=== PATIENT | male | born 1955 | race Caucasian/White ===

== ENCOUNTER 2016-06-23 23:59 | Inpatient (IN) | payer BC ==
--- NOTE | ~2016-06-23 | CR63 ---
[facility] A Service [facility] RADIOLOGY TEXT RESULTS PATIENT: HERVE SANTOS LOCATION: [facility] : 55 UNIT #: [id number] AGE: [address]: Devon Paige MD SEX: M ORDER DR: [id number] [place] [id number] [facility]. [place], [place] [address] [id number] I MR#: [id number] Acc #: [id number] NAME: HERVE SANTOS : 1955 SEX: M STUDY DATE/TIME: 06/26/2016 14:50 [facility] ROOM: [facility] STUDY DESCRIPTION: CR Chest 2 View Attending Physician: Devon Paige M.D. Ordering Physician: Devon Paige M.D. Primary Care Physician: No Primary Care Physician MEDICAL IMAGING REPORT This report is preliminary unless electronic signature is present EXAM 2 views chest. DATE OF EXAM 06/26/2016 HISTORY COPD. REPORT PA and lateral radiographs of the chest are presented. COMPARISON 06/24/2016 FINDINGS Bony structures are unremarkable. Stable mild cardiac enlargement. The lungs hyperinflated consistent with underlying COPD. Increased interstitial and airspace densities bilateral [id number] lung zones remaining more pronounced on the right than left. There is no compelling evidence of underlying vascular congestion. I favor that this reflects worsening bilateral pneumonia in the bilateral lower lobes. No definite pleural effusion. No pneumothorax or suspicious nodule. Continued surveillance to clearance recommended. Dictated by... Brodie Winters M.D. THIS IS AN ELECTRONICALLY VERIFIED REPORT Brodie Witners M.D. at 06/27/2016 5:36 PM HANSA/zackary [facility] A [facility] RADIOLOGY TEXT RESULTS PATIENT: HERVE SANTOS LOCATION: [facility] : 55 UNIT #: [id number] AGE: [address]: Devon Paige MD SEX: M ORDER DR: TD: 06/26/2016 19:18 JOB #: [id number] MEDICAL IMAGING REPORT Page 1 of 1 COPY
--- NOTE | ~2016-06-23 | EKG ---
PATIENT: HERVE SANTOS UNIT #: [id number] Ventricular Rate: 86 BPM Atrial Rate: 86 BPM P-R Interval: 130 ms QRS Duration: 160 ms Q-T Interval: 460 ms QTC Calculation(Bezet): 550 ms P [place]: 3 degrees Calculated R [place]: 46 degrees Calculated T [place]: 31 degrees Diagnosis Line: Normal sinus rhythm Diagnosis Line: Right bundle branch block Diagnosis Line: Abnormal ECG Diagnosis Line: No previous ECGs available Diagnosis Line: Confirmed by ALVINO MCGOWAN MD ([id number]) on 06/25/2016 Diagnosis Line: 11:04:20 PM INTERPRETING MD: ROSLYN ELDER
--- NOTE | ~2016-06-23 | CR72 ---
[facility] A Service [facility] RADIOLOGY TEXT RESULTS PATIENT: HERVE SANTOS LOCATION: [facility] : 55 UNIT #: [id number] AGE: [address]: Devon Paige MD SEX: M ORDER DR: [id number] [facility] [address] [place], [place] [address] [id number] I MR#: [id number] Acc #: [id number] NAME: HERVE SANTOS. : 1955 SEX: M STUDY DATE/TIME: 06/24/2016 0:53 UNIT: [facility] ROOM: 15182 STUDY DESCRIPTION: CR Chest Single View Portable Attending Physician: Devon Paige M.D. Ordering Physician: Eliceo Rene M.D. Primary Care Physician: Primary Care Physician No MEDICAL IMAGING REPORT This report is preliminary unless electronic signature is present EXAM Portable chest INDICATIONS Shortness of air and cough for the past 2-3 days. PROCEDURE Frontal view chest. COMPARISON 04/19/2011 FINDINGS Moderate cardiomegaly. Ill-defined bibasilar opacity, right greater than left. Background emphysema. No pneumothorax. IMPRESSION 1. Cardiomegaly. 2. Emphysema. 3. Bibasilar opacity, right greater than left suspicious for infiltrate. Dictated by... Jim Walden M.D. THIS IS AN ELECTRONICALLY VERIFIED REPORT Jim Walden M.D. at 06/24/2016 9:56 PM EED/cmm TD: 06/24/2016 07:50 JOB #: [id number] MEDICAL IMAGING REPORT [facility] A [facility] RADIOLOGY TEXT RESULTS PATIENT: HERVE SANTOS LOCATION: [facility] : 55 UNIT #: [id number] AGE: [address]: Devon Paige MD SEX: M ORDER DR: Page 1 of 1 COPY
--- NOTE | ~2016-06-23 | HP ---
Unit #: [id number] #: [id number] Patient: HERVE SANTOS [id number] [address] [address] [id number] I MR#: [id number] NAME: HERVE SANTOS. ROOM: 81824 Age: 60 Sex: M Admission Date: 06/24/2016 : 1955 Attending Physician: Sonia Cruz M.D. Primary Care Physician: No Primary Care Physician HISTORY AND PHYSICAL CHIEF COMPLAINT Community-acquired pneumonia with acute hypoxic respiratory failure and COPD exacerbation. HISTORY This pleasant 60-year-old male with COPD, hypertension, CAD, is admitted for pneumonia. The patient states that he became ill about two months ago with a URI. More recently, has been experiencing an increasing cough which is mainly nonproductive, associated with bronchospasm and last night increasing shortness of breath. The patient had seen his primary care physician several days ago who prescribed a steroid Dosepak. Despite using steroids and nebulizer, symptoms worsened. Also developed chills yesterday. Presented to this emergency department late last evening with a temperature of 99.8 and O2 saturation of 82% on room air. Chest x-ray and CT scan showed pneumonia. In the ER, the patient was treated with 125 mg of Solu-Medrol, aspirin, bolused with saline, given Rocephin, Zithromax and a small dose of Mitchell[place]. PAST MEDICAL HISTORY 1. COPD. 2. Hyperlipidemia. 3. Hypertension. 4. CAD, status post PCI and stent. 5. Recent sciatica, being evaluated by primary care physician. 6. Right knee surgery. ALLERGIES None. HOME MEDICATIONS 1. Singulair. 2. Lipitor 80 mg daily. 3. Zyrtec 5 mg daily. 4. Ultram 50 mg b.i.d. 5. Hydrocodone cough syrup. 6. Bystolic 5 mg daily. 7. Symbicort 80/4.5, two puffs b.i.d. 8. Albuterol nebulizer. FAMILY HISTORY Negative for heart or lung disease. Unit #: [id number] #: [id number] Patient: HERVE SANTOS SOCIAL HISTORY The patient lives with his . Drinks occasional alcohol. Smokes one half pack per day of tobacco. REVIEW OF SYSTEMS Notable for cough, shortness of breath, chills, COPD, tobacco use, hyperlipidemia, hypertension, CAD, right knee surgery and sciatica. All other systems were reviewed and are otherwise negative. PHYSICAL EXAMINATION GENERAL APPEARANCE: Pleasant 60-year-old male, currently in no acute distress. VITAL SIGNS: Temperature 99.8, pulse 97, respirations 18, blood pressure 150/53. O2 saturation is 82% on room air. HEENT: Eyes PERRLA. Extraocular muscles are intact. Pharynx is benign, status post tonsillectomy. NECK: Supple without adenopathy or thyromegaly. CHEST: Reveals expiratory wheezes and crackles at the bases bilaterally. CARDIAC: Normal S1 and S2 without murmur. ABDOMEN: Bowel sounds are present. No hepatosplenomegaly, tenderness or masses. EXTREMITIES: Without clubbing, cyanosis or edema. Pedal pulses are present. NEUROLOGIC EXAM: The patient is awake, alert, oriented. Cranial nerves are intact. Equal strength throughout. DIAGNOSTIC STUDIES LABORATORY: Hematocrit 42.6, white blood count 11.3, normal platelet count. Cardiac markers are negative. Coags are normal. Elevated D-dimer. SMA-12 - potassium 3.3, alkaline phos. 94. ABG - pH 7.45, pCO2 32, pO2 55, O2 saturation is 90.5% on 5 L of oxygen. CARDIOVASCULAR: EKG shows a normal sinus rhythm, rate of 86 with an old right bundle branch block. IMAGING: Chest x-ray - cardiomegaly, COPD with right greater than left opacities at the bases. CTA of the chest show a right middle lobe and bibasilar infiltrates, prominent bilateral hilar nodes. Repeat study following treatment of pneumonia is recommended. ASSESSMENT 1. Community-acquired pneumonia with acute hypoxic respiratory failure and COPD exacerbation. 2. Hypertension. 3. Hyperlipidemia. 4. Tobacco use. 5. Hypokalemia. 6. Sciatica, on Ultram, being evaluated by primary care physician. 7. CAD, status post PCI and stent. Unit #: [id number] #: [id number] Patient: HERVE SANTOS PLANS 1. Continue Rocephin and Zithromax pending cultures. 2. Steroids, Duo-Nebs, Symbicort and mucolytics. 3. DVT prophylaxis. 4. Replace potassium. 5. Smoking cessation counseling. 6. Patient will need repeat imaging studies after treatment of his pneumonia. Dictated by Sonia Cruz M.D. AML/df TD: 06/24/2016 05:46 JOB #: [id number] CC: Talisha Lion M.D. HISTORY AND PHYSICAL Page 1 of 1 X Sonia Cruz MD X HISTORY AND PHYSICAL
--- NOTE | ~2016-06-23 | DS ---
Unit #: [id number] #: [id number] Patient: HERVE SANTOS [id number] [address] [address] [id number] I MR#: [id number] NAME: EHRVE SANTOS. ROOM: 311 Age: 60 Sex: M Admission Date: 06/24/2016 : 1955 Discharge Date: 06/28/2016 Attending Physician: Devon Paige M.D. DISCHARGE SUMMARY PRIMARY CARE PHYSICIAN Dr. Suazo DISCHARGE DIAGNOSES 1. Streptococcal pneumonia. 2. Acute hypoxic respiratory failure. 3. Acute chronic obstructive pulmonary disease exacerbation. 4. Essential hypertension. 5. Dyslipidemia. 6. Tobacco usage. 7. Chronic sciatic pain. 8. History of coronary artery disease. 9. Resolved hypokalemia. CONSULTANTS None. PROCEDURES None. DIAGNOSTIC STUDIES LABORATORY ON DAY OF DISCHARGE: BMP with glucose of 106, BUN 24, creatinine 0.5, sodium 140, potassium 4.4, chloride 105, CO2 of 25, calcium 9.1, magnesium 2.2, total protein 6.8, albumin 3.7, total bilirubin 0.7, AST 23, ALT 23, and alkaline phosphatase of 94. CBC with WBC of 19, RBC 4.8, hemoglobin 13.4, hematocrit 41.9, MCV 87.1, MCH 28, MCHC 32.1, RDW 14.6, platelets 264,000, and MPV is 9.6. IMAGING: Chest x-ray on June 24, 2016, impression: Cardiomegaly, emphysema, and bibasilar opacities, right greater than left. CT angiogram on June 24, 2016, showed (1) Dense opacity in the right middle lobe and both lower lobes most in keeping with pneumonia, (2) no evidence for pulmonary embolus, (3) prominent bilateral hilar nodes probably reactive, and (4) recommend followup to document improvement of pulmonary findings and hilar adenopathy after appropriate therapy. Chest x-ray on June 26, 2016, showed hyperinflated lungs consistent with underlying COPD, interstitial and airspace densities bilateral [id number] lung zones right more than left. HOSPITAL COURSE The patient is a pleasant 60-year-old male with a past medical history of coronary artery disease, essential hypertension, COPD, and tobacco usage, who presented to the emergency department with feeling ill two months ago with symptoms of upper respiratory infection. Patient had been Unit #: [id number] #: [id number] Patient: HERVE SANTOS experiencing shortness of breath and increasing cough which was nonproductive with associated bronchospasm at night. Patient had seen his primary care physician a few days prior to admission and was prescribed a steroid Dosepak and nebulizer but persisted. The patient had chills the day prior to admission and presented to the emergency department where he was found to have a temperature of 99.8 and oxygen saturation of 82% on room air. A chest x-ray and CT scan were consistent with bibasilar pneumonia. Patient was admitted and hospitalized for community-acquired pneumonia where he was given Zithromax and Rocephin. After four days of hospitalization, patient is still quite hypoxic. His oxygen is 86% on room air. On questioning, patient tells me that when (1) his primary care physician, his oxygen was at times in the high 80s and low 90s and would always increase as he takes a deep breath. I have encouraged the patient to stop smoking and explained to him about underlying chronic obstructive pulmonary disease. At this time, patient tells me that he is about 70% back to baseline. He has been ambulating many times around the nurse's station today and is no longer coughing. Patient is stable to be discharged home to follow up with his primary care physician within one to two weeks with a followup chest x-ray. We will be setting patient up for home oxygen. DISCHARGE CONDITION Stable. ACTIVITY No limiting, to resume activity as was prior to hospitalization with ambulating every day. DIET Resume heart-healthy diet. DISCHARGE MEDICATIONS 1. Proventil inhaled 4 times daily. 2. Symbicort 80 mcg 2 puffs inhaled twice daily. 3. Prednisone 40 mg orally for the next 3 days, then 30 mg orally for the next 3 days, then 20 mg orally for the next 3 days, then 10 mg orally for the next 3 days. 4. Zyrtec 5 mg orally daily. 5. Lipitor 80 mg orally daily. 6. Tussionex 5 mL every 12 hours as needed for coughing. 7. Bystolic 5 mg orally daily. 8. Singulair 10 mg orally daily. 9. Ultram 5 mg orally twice daily. 10. Levaquin 750 mg orally for the next 5 days. 1. Dictated by... Anyi Ulloa PA-C for Nikki Rojo TD: 06/30/2016 15:35 JOB #: [id number] Unit #: [id number] #: [id number] Patient: HERVE SANTOS Alex DISCHARGE SUMMARY Page 1 of 1 X X DISCHARGE SUMMARY
--- NOTE | ~2016-06-23 | CT16 ---
[facility] A Service [facility] RADIOLOGY TEXT RESULTS PATIENT: HERVE SANTOS LOCATION: [facility] 311-01 : 55 UNIT #: [id number] AGE: [address]: Devon Paige MD SEX: M ORDER DR: [id number] [facility] [address] [place], [place] [address] [id number] I MR#: [id number] Acc #: [id number] NAME: HERVE SANTOS. : 1955 SEX: M STUDY DATE/TIME: 06/24/2016 2:53 [facility]: 40525 STUDY DESCRIPTION: CT Angio Chest for PE Attending Physician: Devon Paige M.D. Ordering Physician: Eliceo Rene M.D. Primary Care Physician: No Primary Care Physician MEDICAL IMAGING REPORT This report is preliminary unless electronic signature is present EXAM CTA chest PE protocol INDICATION Elevated D-dimer level, cough, shortness of air. Chest pain for the past 2 months, worse tonight. PROCEDURE Contrast-enhanced CTA of the chest attention on opacification of the pulmonary arteries. Coronal 3D MIP sagittal reformatted images reconstructed and submitted. 80 mL of Isovue-370. This CT exam was performed with one or more of the following radiation dose reduction techniques: automatic exposure control, adjustment of mA and/or kV according to patient size, and iterative reconstruction. COMPARISON None. FINDINGS No evidence for pulmonary embolus. Significant emphysema. There is a dense opacity in the right middle lobe and both lower lobes. No pneumothorax. There are prominent bilateral hilar nodes. Index right hilar node measures 2.7 cm. No acute findings in the included upper abdomen. No aggressive-appearing bone lesion. IMPRESSION 1. Dense opacity in the right middle lobe and both lower lobes most in keeping with pneumonia. 2. No evidence for pulmonary embolus. 3. Prominent bilateral hilar nodes probably reactive. 4. Recommend attention on followup to document improvement of pulmonary findings and hilar adenopathy after appropriate therapy. [facility] RADIOLOGY TEXT RESULTS PATIENT: HERVE SANTOS LOCATION: [facility] 311-01 : 55 UNIT #: [id number] AGE: [address]: Devon Paige MD SEX: M ORDER DR: Dictated by... Jim Walden M.D. THIS IS AN ELECTRONICALLY VERIFIED REPORT Jim Walden M.D. at 06/24/2016 9:56 PM TOMMY/paul TD: 06/24/2016 09:40 JOB #: [id number] MEDICAL IMAGING REPORT Page 1 of 1 COPY
[2016-06-24 00:34] LABS: POC - CKMB 1.6 ng/mL (0.0-7.9); POC - TROPONIN <0.05 ng/mL (<=0.05)
[2016-06-24 00:36] LABS: ARTERIAL BLOOD GAS CARBOXY HB 1.9 %sat (0.0-9.0); ARTERIAL BLOOD GAS HCO3 22.9 mmol/L; ARTERIAL BLOOD GAS MET HB 0.7 %sat (0.0-2.0); ARTERIAL BLOOD GAS PCO2 32.8 mmHg (35.0-45.0); ARTERIAL BLOOD GAS pH 7.454 (7.350-7.450)
[2016-06-24 00:37] LABS: ARTERIAL BLD GAS O2 SATURATION 90.5 % (90.0-100.0); ARTERIAL BLOOD GAS ALLEN TEST NORMAL; ARTERIAL BLOOD GAS ART SITE RIGHT RADIAL; ARTERIAL BLOOD GAS DELIVERY NASAL CANNULA; ARTERIAL DRAW? YES
[2016-06-24 01:11] LABS: BASOPHIL% 0.2 % (0-2.5); EOSINOPHIL% 0.1 % (0.0-7.0); HEMATOCRIT 42.6 % (38.0-50.0); HEMOGLOBIN 13.8 gm/dL (13.0-16.0); LYMPHOCYTE# 1.5 X10e3 (1.0-3.5); LYMPHOCYTE% 13.5 % (17.0-45.0); MEAN CELL VOLUME 86.8 FL (83-96); MEAN CORPUSCULAR HGB CONC 32.3 g/dL (30-36); MEAN PLATELET VOLUME 8.8 FL (6.5-11.5); MONOCYTE# 0.2 X10e3 (0-1.0); MONOCYTE% 1.5 % (3.0-12.0); NEUTROPHIL# 9.5 X10e3 (1.5-7.1); NEUTROPHIL% 84.7 % (40-75); PLATELET COUNT 229 X10e3 (140-420); RED BLOOD COUNT 4.91 X10e (3.90-5.60); RED CELL DISTRIBUTION WIDTH 14.3 % (11.0-15.5); WHITE BLOOD COUNT 11.3 X10e3 (4.0-10.5)
[2016-06-24 01:13] LABS: DIFF IND NO
[2016-06-24 01:24] LABS: INR 1.1; PARTIAL THROMBOPLASTIN TIME 24.3 SECONDS (23.5-31.3); PROTHROMBIN TIME (PATIENT) 11.4 SECONDS (9.6-11.5)
[2016-06-24 01:44] LABS: ALBUMIN SERUM 3.7 g/dL (3.5-5.0); BILIRUBIN, DIRECT 0.1 mg/dL (0.0-0.2); BILIRUBIN,INDIRECT 0.6 mg/dL (0.0-0.9); BILIRUBIN,TOTAL 0.7 mg/dL (0.2-2.0); BUN/CREATININE RATIO 36.66; CALCIUM SERUM 9.2 mg/dL (8.4-10.2); CREATININE SERUM 0.6 mg/dL (0.6-1.4); GLOM FILT RATE Estimated 109.3 mL/min (>60); POTASSIUM 3.3 mmol/L (3.5-5.1); PROTEIN TOTAL SERUM 6.8 g/dL (6.0-8.3)
[2016-06-24 04:18] LABS: INFLUENZA A NEG (NEG); INFLUENZA B NEG (NEG)
[2016-06-24] MEDS ORDERED: SINGULAIR PO (11:57)
[2016-06-24] MEDS ORDERED: LIPITOR80 MG PO (11:59)
[2016-06-24] MEDS ORDERED: ZYRTEC5 M2 PO (12:02)
[2016-06-24] MEDS ORDERED: ULTRAM PO (12:02)
[2016-06-24] MEDS ORDERED: TUSSIONEX PENN473 ML (12:03)
[2016-06-24] MEDS ORDERED: BYSTOLIC5 MG PO (12:04)
[2016-06-24] MEDS ORDERED: SYMBICORT80 INH (12:04)
[2016-06-24] MEDS ORDERED: ALBUTEROL 0.5ML INH (12:05)
[2016-06-25 05:51] LABS: HEMATOCRIT 36.7 % (38.0-50.0); MEAN CORPUSCULAR HEMOGLOBIN 28.4 PG (28-34); MEAN CORPUSCULAR HGB CONC 32.6 g/dL (30-36); MEAN PLATELET VOLUME 8.9 FL (6.5-11.5); RED BLOOD COUNT 4.22 X10e (3.90-5.60); RED CELL DISTRIBUTION WIDTH 14.6 % (11.0-15.5); WHITE BLOOD COUNT 14.1 X10e3 (4.0-10.5)
[2016-06-25 06:58] LABS: BUN/CREATININE RATIO 24.28; CALCIUM SERUM 8.8 mg/dL (8.4-10.2); CREATININE SERUM 0.7 mg/dL (0.6-1.4); GLOM FILT RATE Estimated 102.6 mL/min (>60); MAGNESIUM 1.8 mg/dL (1.6-3.0); POTASSIUM 3.9 mmol/L (3.5-5.1)
[2016-06-26 06:45] LABS: MEAN CELL VOLUME 87.1 FL (83-96); MEAN CORPUSCULAR HEMOGLOBIN 28.3 PG (28-34); MEAN CORPUSCULAR HGB CONC 32.5 g/dL (30-36); MEAN PLATELET VOLUME 9.1 FL (6.5-11.5); RED BLOOD COUNT 4.25 X10e (3.90-5.60); RED CELL DISTRIBUTION WIDTH 14.9 % (11.0-15.5); WHITE BLOOD COUNT 13.4 X10e3 (4.0-10.5)
[2016-06-26 07:28] LABS: CREATININE SERUM 0.6 mg/dL (0.6-1.4); GLOM FILT RATE Estimated 109.3 mL/min (>60); MAGNESIUM 2.1 mg/dL (1.6-3.0); POTASSIUM 4.4 mmol/L (3.5-5.1)
[2016-06-27 06:38] LABS: HEMATOCRIT 39.6 % (38.0-50.0); HEMOGLOBIN 12.6 gm/dL (13.0-16.0); MEAN CELL VOLUME 87.5 FL (83-96); MEAN CORPUSCULAR HEMOGLOBIN 27.8 PG (28-34); MEAN CORPUSCULAR HGB CONC 31.8 g/dL (30-36); MEAN PLATELET VOLUME 9.1 FL (6.5-11.5); RED BLOOD COUNT 4.52 X10e (3.90-5.60); RED CELL DISTRIBUTION WIDTH 14.5 % (11.0-15.5)
[2016-06-27 06:55] LABS: BUN/CREATININE RATIO 43.33; CALCIUM SERUM 8.9 mg/dL (8.4-10.2); CREATININE SERUM 0.6 mg/dL (0.6-1.4); GLOM FILT RATE Estimated 109.3 mL/min (>60); POTASSIUM 4.6 mmol/L (3.5-5.1)
[2016-06-28 05:54] LABS: HEMATOCRIT 41.9 % (38.0-50.0); HEMOGLOBIN 13.4 gm/dL (13.0-16.0); MEAN CELL VOLUME 87.1 FL (83-96); MEAN CORPUSCULAR HGB CONC 32.1 g/dL (30-36); MEAN PLATELET VOLUME 9.6 FL (6.5-11.5); RED BLOOD COUNT 4.8 X10e (3.90-5.60); RED CELL DISTRIBUTION WIDTH 14.6 % (11.0-15.5)
[2016-06-28 06:05] LABS: CALCIUM SERUM 9.1 mg/dL (8.4-10.2); CREATININE SERUM 0.5 mg/dL (0.6-1.4); GLOM FILT RATE Estimated 117.8 mL/min (>60); MAGNESIUM 2.2 mg/dL (1.6-3.0); POTASSIUM 4.4 mmol/L (3.5-5.1)
[2016-06-28] MEDS ORDERED: PREDNISONE50 MG PO (16:12)
[2016-06-28] MEDS ORDERED: PREDNISONE10 MG PO ×2 (16:13→16:14)
[2016-06-28] MEDS ORDERED: LEVAQUIN750 M1 PO (16:14)
== END 2016-06-28 18:34 | disposition home or self-care (01) | DRG 189 ==
LOC: CED 23:59 → CEDOF 06-24 04:20 → C3A PCU 06-24 11:02
PROVIDERS: Emergency Medicine; Physician Assistant Medical
DX: J96.01 Acute respiratory failure with hypoxia (principal); J15.4 Pneumonia due to other streptococci; J44.0 Chronic obstructive pulmonary disease with (acute) lower respiratory infection; J44.1 Chronic obstructive pulmonary disease with (acute) exacerbation; I10 Essential (primary) hypertension; E78.5 Hyperlipidemia, unspecified; M54.30 Sciatica, unspecified side; G89.29 Other chronic pain; I25.10 Atherosclerotic heart disease of native coronary artery without angina pectoris; E87.6 Hypokalemia; F17.210 Nicotine dependence, cigarettes, uncomplicated; Z95.5 Presence of coronary angioplasty implant and graft
CPT/HCPCS: 36415; 36600; 71010; 71020; 71275; 80048; 80076; 82308; 82550; 82553; 82803; 83735; 83880; 84484; 85025; 85027; 85379; 85610; 85730; 87040; 87070; 87186; 87205; 87804; 93005; 94640; 94664; 94760; 96365; 96367; 96375; 99285; J0360; J0456; J0696; J1650; J2920; J2930; Q9967